=== PATIENT | female | born 1985 | race Caucasian/White ===

== ENCOUNTER → 2019-10-29 18:31 | Outpatient (BNVA) | payer SELFPAY | PROVIDERS: Family Provider Family Medicine; PCP Family Medicine; Visit Provider Nurse Practitioner Family | DX: N39.0 Urinary tract infection, site not specified (principal); B37.3 Candidiasis of vulva and vagina | CPT/HCPCS: 81000 ==

== ENCOUNTER 2020-05-07 09:27 | Outpatient (CLI) | payer SELFPAY ==
--- NOTE | 2020-05-07 09:40 | US_ITS ---
WS: [id number] ULTRASOUND ABDOMEN LIMITED CLINICAL INFORMATION: EPIGASTRIC PAIN/RUQ ABD PAIN COMPARISON: None. FINDINGS: Liver Size: Enlarged Craniocaudal length: 17.2 cm. Echogenicity: Normal. Surface nodularity: None. Mass (size and location): None. Bile ducts Intrahepatic ducts: Normal. Common bile duct diameter: 0.3 cm. Gallbladder Cholelithiasis Gallstones: Present Gallbladder sludge: None. Gallbladder wall thickening: None. Pericholecystic fluid: None. Sonographic Coleman sign: Absent. Pancreas Normal as visualized. Right kidney: Normal. Hydronephrosis: None. Size: 10.5 cm x 6.2 cm x 4.7 cm. Abdominal aorta and IVC Visualized portions are normal. Ascites: None. US/US abdomen limited 24232 IMPRESSION: 1. Mild hepatomegaly measuring 17.1 CM. 2. Cholelithiasis. Normal common bile duct. 3. No hydronephrosis in right kidney.
== END 2020-05-07 09:28 | disposition home or self-care (01) ==
LOC: RAD 09:29
PROVIDERS: Visit Provider Nurse Practitioner Family
DX: R10.11 Right upper quadrant pain (principal); R10.13 Epigastric pain; R16.0 Hepatomegaly, not elsewhere classified; K80.20 Calculus of gallbladder without cholecystitis without obstruction
CPT/HCPCS: 76705

== ENCOUNTER → 2022-08-04 14:00 | Outpatient (BNVA) | payer OTHER, SELFPAY | PROVIDERS: Visit Provider Obstetrics & Gynecology | DX: N92.6 Irregular menstruation, unspecified (principal); Z86.2 Personal history of diseases of the blood and blood-forming organs and certain disorders involving the immune mechanism | CPT/HCPCS: 81241; 87624; 88305 ==

== ENCOUNTER → 2022-08-15 14:13 | Outpatient (BNVA) | payer OTHER, SELFPAY | PROVIDERS: Visit Provider Obstetrics & Gynecology | DX: N85.9 Noninflammatory disorder of uterus, unspecified (principal); N93.8 Other specified abnormal uterine and vaginal bleeding | CPT/HCPCS: 76830 ==

== ENCOUNTER 2022-08-29 08:46 | Inpatient (IN) | payer OTHER, SELFPAY ==
[2022-08-28 08:00] VITALS: BMI 31.8
--- NOTE | 2022-08-28 08:23 | P.ANESASSM_ITS ---
Pre-Anesthetic Assessment Height/Weight: Height 1.6 m Weight 81.647 kg Preop Diagnosis: abnormal uterine bleeding Operation Date: 08/29/22 07:00 Proposed Procedures p Total abdominal hysterectomy, bilateral salpingectomy, possible oophorectomy 10721,R93.89(Not Applicable) - Bebe Geiger MD s Salpingectomy(Not Applicable) - Bebe Geiger MD s Salpingo Oophorectomy (Open)(Not Applicable) - Bebe Geiger MD Familial anesthetic complications: NOne Social Tobacco and No alcohol Exam alert, oriented x 3, clear to auscultation bilaterally and regular rate & rhythm Airway Mallampati: Class II Dentition: full Comments: Comments: TMJ - patient states it may pop during DL for intubation, but it goes back on it's own with only minor residual soreness. Pulmonary None reported CV/HEM None reported Anesthetic Plan ASA status: 2 Anesthesia: General Risk of > 500 ml blood loss (7ml/kg in children): No Medications/Allergies Home Medications Medication Instructions Recorded Confirmed Last Taken Type medroxyprogesterone 5 mg tablet 5 mg PO DAILY #90 tabs 08/18/22 08/28/22 08/27/22 Rx (Provera) Allergies Allergy/AdvReac Type Severity Reaction Status Date / Time ciprofloxacin [From Cipro] Allergy NAUSEA Verified 08/28/22 07:58 [facility] Anesthesia Medical History No pertinent past medical history neghx: htn,dm,thyroid,dvt/pe PCP: Dr. Trammell TMJ arthralgia Surgical History H/O section 2003 2007 H/O removal of cyst (~2004) to remove cyst from left ovary at [facility] by Dr. Lamar History of cholecystectomy (~12/2020) Family History Mother Breast cancer dx after age 55 Hypertension Stroke Grandmother Colon cancer maternal great Diabetes maternal great Hypertension maternal Grandfather Diabetes paternal Hypertension maternal Brother Hypertension Denies family history of Ovarian cancer Heart disease Hypercholesteremia Uterine cancer Thyroid disease Female Reproductive History Date of last menstrual period: 08/21/22 Data Anesthesia Cardiac Studies: No Data to Display
[2022-08-28 08:43] LABS: Basophils # 0.1 10^3/uL (0.0-0.1); Basophils % 1.4 %; Eosinophils # 0.3 10^3/uL (0.0-0.8); Eosinophils % 4.8 %; Hematocrit 39.9 % (37.0-47.0); Hemoglobin 13.4 g/dL (11.5-15.3); Lymphocytes # 1.5 10^3/uL (0.8-4.8); Lymphocytes % 24.5 %; Mean Corpuscular HGB Conc 33.6 g/dL (30.0-36.0); Mean Corpuscular Hemoglobin 28.3 pg (28.0-34.0); Mean Corpuscular Volume 84.4 fl (81-99); Mean Platelet Volume 10.3 fL (7.4-10.4); Monocytes # 0.4 10^3/uL (0.2-0.9); Monocytes % 6.8 %; Neutrophils # 3.91 10^3/uL (1.8-7.7); Neutrophils % 62.2 %; Nucleated Red Blood Cells % 0 %; Platelet Count 311 10^3/cmm (130-400); Red Blood Count 4.73 10^6/uL (4.1-5.3); Red Cell Distribution Width 12.2 % (12.1-15.1); White Blood Count 6.3 10^3/uL (4.0-10.0)
[2022-08-28 09:03] LABS: Anion Gap 11.8 (5-19); Blood Urea Nitrogen 9 mg/dL (6-20); Calcium 9.4 mg/dL (8.5-10.5); Carbon Dioxide 24 mmol/L (22-29); Chloride 101 mmol/L (98-107); Creatinine Clr Calc Pharmacy 110.2652; Glomerular Filtration Rate 93.6 mL/min (90-130); Glucose 106 mg/dL (65-115); Osmolality Calculated 275 mOsm/kg (285-295); Potassium 3.8 mmol/L (3.5-5.1); Sodium 133 mmol/L (136-145)
[2022-08-29] VITALS (20 sets, daily range): BP systolic 121–166; BP diastolic 81–119; PULSE 71–103; RESP 13–24; TEMP 36.3–37.2; O2SAT 90–100
[2022-08-29] MEDS: gabapentin 300 mg Capsule PO (06:23)
[2022-08-29] MEDS: phenazopyridine 100 mg Tablet 200 MG PO ×3 (06:23→21:24)
[2022-08-29] MEDS: sodium chloride 0.9% 1,000 ML 30 ML IV (06:24)
[2022-08-29] MEDS: CELEcoxib 200 mg Capsule 400 MG PO (06:24)
[2022-08-29] MEDS: acetaminophen 1,000 MG/100 ML PIGGYBACK 400 MG IV (06:27)
[2022-08-29] MEDS: scopolamine 1.5 Patch 1 PATCH TRANSDERMA (06:29)
[2022-08-29 06:48] LABS: OR HCG Qualitative Urine Negative (Negative)
--- NOTE | 2022-08-29 06:50 | P.ANESUD_ITS ---
Pre-Anesthetic Update Pre-Anesthetic Assessment: Date of Surgery/Procedure: 08/29/22 Preop Queenie gnosis: abnormal uterine bleeding Proposed Procedure: Operation Date: 08/29/22 07:00 Proposed Procedures p Total abdominal hysterectomy, bilateral salpingectomy, possible oophorectomy 96139,R93.89(Not Applicable) - Bebe Geiger MD s Salpingectomy(Not Applicable) - Bebe Geiger MD s Salpingo Oophorectomy (Open)(Not Applicable) - Bebe Geiger MD Any changes to Pre-Anesthetic Assessment?: No Last Intake: Intake Last Liquid Date 08/28/22 Last Liquid Time 21:30 Last Solid Date 08/28/22 Last Solid Time 18:00 Labs Last 48hrs: Short CBC 08/28/22 Range/Units 08:20 WBC 6.3 (4.0-10.0) 10^3/ uL Hgb 13.4 (11.5-15.3) g/dL Hct 39.9 (37.0-47.0) % MCV 84.4 (81-99) fl Plt Count 311 (130-400) 10^3/c mm Neut % (Auto) 62.2 % Neut # (Auto) 3.91 (1.8-7.7) 10^3/u L BMP 08/28/22 08:20 Sodium 133 L Potassium 3.8 Chloride 101 Carbon Dioxide 24 BUN 9 Creatinine 0.7 Glucose 106 Calcium 9.4 Blood Bank 08/28/22 08:20 Blood Type O Positive Rho(D) Type Positive Antibody Screen Negative Vitals: Temperature 98.1 F 08/29/22 06:06 Temperature Source Temporal Artery S can 08/29/22 06:06 Pulse Rate 103 H 08/29/22 06:06 Respiratory Rate 16 08/29/22 06:06 Blood Pressure 148/112 08/29/22 06:06 Blood Pressure Ethel n 124 08/29/22 06:06 Pulse Oximetry 98 08/29/22 06:06 Oxygen Delivery Me thod 08/29/22 06:06 Exam: Pre-Anes Outpt Exam: alert, oriented x 3, clear to auscultation bilaterally and regular rate & rhythm Cardiac Studies: No Data to Display
--- NOTE | 2022-08-29 07:03 | W.PM.OPSUD ---
Surgery/Procedure H&P Update DATE OF PROCEDURE: August 29, 2022 DATE H&P PERFORMED: 08/25/22 H&P UPDATE INFORMATION: I have reviewed H&P completed within last 30 days, I have examined patient prior to procedure and No changes to prior documentation PREOP DIAGNOSIS: abnormal uterine bleeding PLANNED PROCEDURE: Operation Date: 08/29/22 07:00 Proposed Procedures p Total abdominal hysterectomy, bilateral salpingectomy, possible oophorectomy 61425,R93.89(Not Applicable) - Bebe Geiger MD s Salpingectomy(Not Applicable) - eBbe Geiger MD s Salpingo Oophorectomy (Open)(Not Applicable) - Bebe Geiger MD Related Problem List Diagnoses (1) Abnormal uterine bleeding (AUB): (2) Previous section:
[2022-08-29] MEDS: ceFAZolin 2,000 MG in sodium chloride 0.9% (plus) 50 ML 100 MG IV ×2 (07:08→15:38)
--- NOTE | 2022-08-29 09:44 | SUR.OPER ---
0909 SPOUSE UPDATED IN WAITING AREA 0939 SPOUSE UPDATED VIA OPS REJI ZELAYA
--- NOTE | 2022-08-29 10:09 | P.OP_ITS ---
Operative Report Date of procedure: August 29, 2022 Pre-op diagnosis: Preop Diagnosis abnormal uterine bleeding Post-op diagnosis: same Post-op findings: enlarged uterus, 14 week sized, normal appearing tubes and ovaries. Procedure done: ENMA, bilateral salpingectomy Specimens removed/disposition: uterus and bilateral fallopian tubes to pathology Surgeon: Bebe Geiger Anesthesia: General Estimated blood loss (mL): 550 IV fluids (mL): 2,000 Urine output (mL): 100 Complications: none Findings: 14 week sized uterus, normal appearing tubes and ovaries Condition: stable Disposition: PACU Procedure: The patient was taken to the operating room where general anesthesia was administered and found to be adequate. She was prepped and draped in the normal sterile fashion in the dorsal supine position. A grimm catheter was placed. A Pfannenstiel skin incision was made over the previous scar and the scar removed. The incision was carried down to the underlying layer of fascia. The fascia was nicked in the midline and extended laterally with the Espinoza scissors. The fascia was then tented up and the rectus muscles dissected off sharply. The rectus muscles were in the midline and the abdomen entered bluntly with the digit. This peritoneal incision was extended superiorly and inferiorly with good visualization of the bladder. The O'Rg-O'Archuleta retractor was placed and the bowel packed away. The uterus was grasped bilaterally with [facility] her clamps and the uterus elevated from the pelvis. The round ligament was suture-ligated and opened. This was performed bilaterally. A window was made medial to the infundibulopelvic ligament and inferior to the fallopian tube and ovary. The infundibulopelvic ligament was clamped cut and suture-ligated bilaterally. The Syl clamp was placed in the mesosalpinx. The fallopian tubes was removed with the metzenbaum scissors. The ovarian pedicle was suture ligated. This was performed bilaterally with excellent hemostasis. The bladder flap was created sharply with the metzenbaum scissors and the bladder reflected caudally. The uterine arteries and cardinal ligaments were then clamped cut and suture-ligated down to the angle of the vagina. The vaginal cuff was clamped and cut and the specimen was removed. The vaginal cuff was closed with 0 Vicryl incorporating the uterosacral ligaments into the lateral aspects of the vaginal cuff. There was excellent hemostasis. The pelvis was irrigated. The O'Rg- O'Archuleta retractor as well as the packing was removed. The peritoneum was closed with 3-0 Monocryl in a running fashion. The fascia was closed with 0 Vicryl in a running fashion with 2 separate sutures overlapping in the midline. The skin was closed with absorbable rosana. The patient tolerated the procedure well. Sponge lap and needle counts were correct x2. She was taken to the recovery room in stable condition.
--- NOTE | 2022-08-29 10:32 | PC.NURSE ---
Complains of cramping
[2022-08-29] MEDS: fentaNYL 50 mcg/mL INJ 2mL IVP (10:35)
[2022-08-29] MEDS: dextrose 5%-lactated ringers 1,000 ML 125 ML IV ×2 (11:27→20:01)
[2022-08-29] MEDS: HYDROmorphone 1 mg/mL INJ 1 mL 1.5 MG IVP (12:12)
--- NOTE | 2022-08-29 12:29 | ANE.PACU2 ---
Inpatient post-anesthesia follow up: Airway intact: Yes Vital signs: Temperature 97.9 F Pulse Rate 75 Respiratory Rate 14 Blood Pressure 130/89 Pulse Oximetry 97 Oxygen Delivery Me thod Room Air Oxygen Flow Rate 8 Fraction of Inspir ed Oxygen Hydration adequate: Yes Nausea and vomiting: No Pain level: 1 Mental status: Baseline
[2022-08-29] MEDS: ketorolac 30 mg/mL INJ IVP ×2 (15:39→21:24)
[2022-08-29] MEDS: docusate sodium 100 mg Capsule PO (17:50)
[2022-08-29] MEDS: sodium chloride 0.9% 500 ML IV (17:51)
[2022-08-29] MEDS: FUROsemide 10 mg/mL SDV 2mL 20 MG IVP (18:31)
[2022-08-29] MEDS: ondansetron 2 mg/ML SDV 2 mL 4 MG IVP (19:16)
[2022-08-29] MEDS: diphenhydrAMINE 50 mg/mL SDV 1mL 12.5 MG IVP (21:24)
[2022-08-30] MEDS: ceFAZolin 2,000 MG in sodium chloride 0.9% (plus) 50 ML 100 MG IV
[2022-08-30] MEDS: HYDROcodone-acetaminophen 5-325 mg Tablet PO
[2022-08-30] MEDS: ketorolac 30 mg/mL INJ IVP (03:07)
[2022-08-30 03:12] VITALS: BP 124/79; PULSE 80; RESP 15; TEMP 36.8
[2022-08-30] MEDS: dextrose 5%-lactated ringers 1,000 ML 125 ML IV (04:37)
[2022-08-30 05:05] LABS: Hematocrit 23.7 % (37.0-47.0); Hemoglobin 7.6 g/dL (11.5-15.3); Mean Corpuscular HGB Conc 32.1 g/dL (30.0-36.0); Mean Corpuscular Hemoglobin 28.4 pg (28.0-34.0); Mean Corpuscular Volume 88.4 fl (81-99); Mean Platelet Volume 10.3 fL (7.4-10.4); Platelet Count 235 10^3/cmm (130-400); Red Blood Count 2.68 10^6/uL (4.1-5.3); Red Cell Distribution Width 12.5 % (12.1-15.1); White Blood Count 6.9 10^3/uL (4.0-10.0)
[2022-08-30] MEDS: docusate sodium 100 mg Capsule PO ×2 (09:40→17:46)
[2022-08-30] MEDS: ibuprofen 800 mg tablet PO ×2 (09:40→17:46)
[2022-08-30] MEDS: simethicone 80 mg Chew PO ×3 (09:40→21:05)
[2022-08-30] MEDS: phenazopyridine 100 mg Tablet 200 MG PO ×3 (09:41→21:03)
[2022-08-30 09:43] VITALS: BP 126/79; PULSE 90; RESP 17; TEMP 36.8
--- NOTE | 2022-08-30 11:06 | PM.PN ---
Subjective Subjective: The patient is doing well this morning. The nausea from last night has resolved Vitals/I&O/Wt Last Vital Signs Temp 98.3 F 08/30/22 09:43 Pulse 90 08/30/22 09:43 Resp 17 08/30/22 09:43 BP 126/79 08/30/22 09:43 Pulse Ox 99 08/29/22 14:20 O2 Del Method 08/29/22 17:55 O2 Flow Rate 8 08/29/22 10:10 08/29/22 08/30/22 08/30/22 22:59 06:59 14:59 Intake Total 2550 / 4800 1000 / 5800 Output Total 820 / 1780 1750 / 3530 100 / 100 Balance 1730 / 3020 -750 / 2270 -100 / -100 Physical Exam Narrative: The patient is tolerating a regular diet. She is ambulating. Her pain is well controlled Const: COMMON NORMALS: no acute distress, patient oriented x3, no limitations, healthy appearing, alert and well nourished GENERAL APPEARANCE: cooperative, comfortable, well kempt and well developed ORIENTATION/CONSCIOUSNESS: Yes awake, Yes oriented to person, Yes oriented to place and Yes oriented to time Resp: COMMON NORMALS: normal respiratory effort EFFORT & INSPECTION: Yes able to speak in complete sentences GI: COMMON NORMALS: Soft to palpation and non-tender PALPATION: Yes Soft to palpation Extremity: COMMON NORMALS: no calf tenderness Neuro: COMMON NORMALS: patient oriented x3 SENSORIUM/ORIENTATION: Yes alert, Yes oriented to person, Yes oriented to place and Yes oriented to time Psych: APPEARANCE: Yes well kempt Skin: WOUNDS: Yes surgical site (clean/dry/covered) Urinary Catheter Management: Kaplan: Cath Placed During This Visit: yes, but has since been removed by the nurse Reason for Continuing Indwelling Catheter: Decision to DC Catheter Urinary Catheter Date of Insertion: 08/29/22 Urinary Catheter Time of Insertion: 07:40 Date Urinary Catheter Removed: 08/30/22 Time Urinary Catheter Discontinued: 05:00 Data 08/30/22 04:54 08/28/22 08:20 Micro: Microbiology 08/29/22 07:40 Urine Culture - Preliminary Urine Catheterized Attestations Medical Necessity Statement*: The patient had an abdominal hysterectomy. She will be here two midnights Coding Level of Care Code Acute Code for Chg Fwd
--- NOTE | 2022-08-30 14:16 | PC.NURSE ---
pt up to shower without difficulty. abdominal dressing removed in shower. bed linens changed.
[2022-08-30 16:02] VITALS: BP 125/80; PULSE 80; RESP 15; TEMP 36.9
[2022-08-30] MEDS: ondansetron 2 mg/ML SDV 2 mL 4 MG IVP (18:56)
[2022-08-30 22:43] VITALS: BP 111/59; PULSE 94; RESP 15; TEMP 36.7; O2SAT 100
[2022-08-31] MEDS: ibuprofen 800 mg tablet PO (02:29)
--- NOTE | 2022-08-31 07:59 | P.DS_ITS ---
Discharge Providers Date of Admission: 08/29/22 08:46 Date of Discharge: August 31, 2022 Attending Provider at Admission: Bebe Geiger MD Attending Provider at Discharge: Bebe Geiger MD Primary Care Provider: Christos Trammell MD Diagnoses at Discharge Discharge Diagnosis (1) Abnormal uterine bleeding (AUB): Status: Acute (2) Previous section: Status: Acute Reason for Visit Reason for Visit: 75809, R93.89 Hospital Course Hospital Course The patient was admitted for surgery. she did well postoperatively and was ready for discharge on day #2 Physical Exam Narrative: The patient is doing well today. No concerns. Const: COMMON NORMALS: no acute distress, patient oriented x3, no limitations, healthy appearing, alert and well nourished GENERAL APPEARANCE: cooperative, comfortable, well kempt and well developed ORIENTATION/CONSCIOUSNESS: Yes awake, Yes oriented to person, Yes oriented to place and Yes oriented to time Resp: COMMON NORMALS: normal respiratory effort EFFORT & INSPECTION: Yes able to speak in complete sentences GI: COMMON NORMALS: Soft to palpation and non-tender PALPATION: Yes Soft to palpation Extremity: COMMON NORMALS: no calf tenderness Neuro: COMMON NORMALS: patient oriented x3 SENSORIUM/ORIENTATION: Yes alert, Yes oriented to person, Yes oriented to place and Yes oriented to time Psych: COMMON NORMALS: mental status grossly normal, Normal thought process present, cooperative, normal affect and speech normal APPEARANCE: Yes well kempt SPEECH: Yes normal speech THOUGHT PROCESS: Normal thought process present Skin: WOUNDS: Yes surgical site (clean/dry/intact) Urinary Catheter Management: Kaplan: Cath Placed During This Visit: yes, but has since been removed by the nurse Reason for Continuing Indwelling Catheter: Decision to DC Catheter Urinary Catheter Date of Insertion: 08/29/22 Urinary Catheter Time of Insertion: 07:40 Date Urinary Catheter Removed: 08/30/22 Time Urinary Catheter Discontinued: 05:00 Discharge Data Studies Completed and Pending Pending at discharge Category Date Time Status Urine Culture Routine Lab 08/29/22 07:40 Results Pathology: Surgical [PTH] Routine Pth 08/29/22 09:48 Received Laboratory Results WBC 6.9 10^3/uL (4.0-10.0) 08/30/22 04:54 RBC 2.68 10^6/uL (4.1-5.3) L 08/30/22 04:54 Hgb 7.6 g/dL (11.5-15.3) L 08/30/22 04:54 Hct 23.7 % (37.0-47.0) L 08/30/22 04:54 MCV 88.4 fl (81-99) 08/30/22 04:54 MCH 28.4 pg (28.0-34.0) 08/30/22 04:54 MCHC 32.1 g/dL (30.0-36.0) 08/30/22 04:54 RDW 12.5 % (12.1-15.1) 08/30/22 04:54 Plt Count 235 10^3/cmm (130-400) 08/30/22 04:54 MPV 10.3 fL (7.4-10.4) 08/30/22 04:54 Neut % (Auto) 62.2 % 08/28/22 08:20 Lymph % (Auto) 24.5 % 08/28/22 08:20 [place] % (Auto) 6.8 % 08/28/22 08:20 Eos % (Auto) 4.8 % 08/28/22 08:20 Baso % (Auto) 1.4 % 08/28/22 08:20 Neut # (Auto) 3.91 10^3/uL (1.8-7.7) 08/28/22 08:20 Lymph # (Auto) 1.5 10^3/uL (0.8-4.8) 08/28/22 08:20 [place] # (Auto) 0.4 10^3/uL (0.2-0.9) 08/28/22 08:20 Eos # (Auto) 0.3 10^3/uL (0.0-0.8) 08/28/22 08:20 Baso # (Auto) 0.1 10^3/uL (0.0-0.1) 08/28/22 08:20 Nucleated RBC % (auto) 0 % 08/28/22 08:20 Nucleated RBCs # 0.0 /100WBC 08/28/22 08:20 Sodium 133 mmol/L (136-145) L 08/28/22 08:20 Potassium 3.8 mmol/L (3.5-5.1) 08/28/22 08:20 Chloride 101 mmol/L (98-107) 08/28/22 08:20 Carbon Dioxide 24 mmol/L (22-29) 08/28/22 08:20 Anion Gap 11.8 (5-19) 08/28/22 08:20 BUN 9 mg/dL (6-20) 08/28/22 08:20 Creatinine 0.7 mg/dL (0.5-0.9) 08/28/22 08:20 GFR Calculation 93.6 mL/min (90-130) 08/28/22 08:20 Glucose 106 mg/dL (65-115) 08/28/22 08:20 Calculated Osmolality 275 mOsm/kg (285-295) L 08/28/22 08:20 Calcium 9.4 mg/dL (8.5-10.5) 08/28/22 08:20 Urine HCG, Qual Negative (Negative) 08/29/22 05:51 Blood Type O Positive 08/28/22 08:20 Rho(D) Type Positive 08/28/22 08:20 Antibody Screen Negative 08/28/22 08:20 Vitals Last Vital Signs Temp 98.1 F 08/30/22 22:43 Pulse 94 08/30/22 22:43 Resp 15 08/30/22 22:43 BP 111/59 08/30/22 22:43 Pulse Ox 100 08/30/22 22:43 O2 Del Method 08/30/22 22:43 O2 Flow Rate 8 08/29/22 10:10 Discharge Plan Discharge Patient Disposition: Home Condition: Stable Prescriptions: New docusate sodium 100 mg Capsule 100 mg PO BID Qty: 60 0RF ibuprofen 800 mg Tablet 800 mg PO Q8H Qty: 30 0RF hydrocodone-acetaminophen 5-325 mg Tablet 1 tab PO Q4H PRN (Reason: Moderate To Severe Pain) Qty: 30 0RF Discontinued medroxyprogesterone [Provera] 5 mg tablet 5 mg PO DAILY Qty: 90 4RF Discharge Orders: Discharge Order (Routine); Ordered 08/31/22 Ordered By: Bebe Geiger Patient Instructions: Opioid Safety Discharge Attestations Time Spent in Discharge Care*: less than 30 min Quality Metrics Clinical Quality Measures [ No reported AMI, CVA or VTE this stay] Coding Level of Care Code Acute Chg FW DC note Diagnoses Abnormal uterine bleeding (AUB) N93.9 Previous section Z98.891
[2022-08-31 08:36] VITALS: BP 108/68; PULSE 89; RESP 18; TEMP 36.7; O2SAT 98
== END 2022-08-31 08:28 | disposition home or self-care (01) | DRG 743 ==
LOC: OBGYN 08:56
PROVIDERS: Anesthesiology; Admitting Provider Obstetrics & Gynecology; PCP Family Medicine; Visit Provider Obstetrics & Gynecology
PROC: 0UT90ZZ Resection of Uterus, Open Approach (ICD-10-PCS; CPT 58150; principal; 2022-08-29 07:00)
PROC: 0UT90ZZ Resection of Uterus, Open Approach (ICD-10-PCS; CPT 58700; 2022-08-29 07:00)
DX: N93.9 Abnormal uterine and vaginal bleeding, unspecified (principal)
CPT/HCPCS: 36415; 51702; 80048; 81025; 84703; 85025; 85027; 86850; 86900; 87086; 88307; 96374; 96376; J0131; J0690; J1100; J1170; J1200; J1885; J1940; J2250; J2405; J2550; J2704; J2710; J3010; J3490; J7030; J7040; J7121

== ENCOUNTER 2023-02-21 07:26 | Outpatient (CLI) | payer OTHER, SELFPAY ==
--- NOTE | 2023-02-21 07:53 | CTR_ITS ---
PROCEDURE INFORMATION: Exam: CT Abdomen And Pelvis With Contrast Exam date and time: 02/21/2023 9:32 AM Age: 37 years old Clinical indication: Localized; Right lower quadrant (rlq); Prior surgery; Surgery date: 6+ months; Surgery type: Hyst, ovarian cyst, 2x hernia; Patient HX: RT lower abdominal pain, hematoma from hyst surgery in aug TECHNIQUE: Imaging protocol: Computed tomography of the abdomen and pelvis with contrast. Radiation optimization: All CT scans at this facility use at least one of these dose optimization techniques: automated exposure control; mA and/or kV adjustment per patient size (includes targeted exams where dose is matched to clinical indication); or iterative reconstruction. Contrast material: OMNI 350; Contrast volume: 95 ml; Contrast route: INTRAVENOUS (IV); REPORTING DATA: Count of CT and Cardiac NM exams in prior 12 months: This patient has received 0 known CTs and 0 known cardiac nuclear medicine studies in the 12 months prior to the current study. COMPARISON: 1. US transvaginal [id number] 08/15/2022 2:17 PM 2. US abdomen limited [id number] 05/07/2020 9:54 AM RADIATION DOSE METRICS: Total DLP (mGy-cm): 481.29 FINDINGS: Liver: Enlarged, measuring 19 cm in craniocaudal dimension. No focal lesions. Gallbladder and bile ducts: Prior cholecystectomy without biliary ductal dilatation. Pancreas: Normal without ductal dilatation. Spleen: Enlarged spleen measures 14 cm in greatest dimension. Adrenal glands: Normal. No mass. Kidneys and ureters: Normal. No hydronephrosis. Stomach and bowel: No dilatation. No mucosal thickening. Appendix: Normal. Intraperitoneal space: No free air, free fluid, or well-organized fluid collection. Vasculature: Scant aortoiliac atherosclerotic calcification without aneurysmal dilatation. Lymph nodes: No enlarged lymph nodes. Urinary bladder: Unremarkable as visualized. Reproductive: The uterus is surgically absent. Normal CT appearance of the ovaries with left dominant follicle. Bones/joints: No acute fracture. There is a non expansile mixed lucent and sclerotic lesion within the right ilium measuring 5.8 x 2.0 x 6.0 cm. Narrow transition zone. No endosteal scalloping, cortical disruption, periosteal reaction, or associated soft tissue mass. Soft tissues: Small fat containing umbilical hernia. Lower anterior abdominal wall postsurgical scarring. CT/CT abdomen pelvis w con* [id number] IMPRESSION: 1. No acute findings. 2. Hepatosplenomegaly. 3. Nonaggressive 6 cm mixed lucent and sclerotic right ilial lesion. Recommend nonemergent MRI without and with contrast.
[2023-02-21] MEDS: iohexol 350 mg/mL 500 mL Btl (per mL) PO (09:36)
[2023-02-21] MEDS: iohexol 350 mg/mL 500 mL Btl (per mL) IV (09:37)
== END 2023-02-21 07:27 | disposition home or self-care (01) ==
PROVIDERS: PCP Family Medicine; Visit Provider Family Medicine
DX: R10.9 Unspecified abdominal pain (principal)
CPT/HCPCS: 74177; Q9967

== ENCOUNTER 2023-03-27 10:40 | Outpatient (CLI) | payer OTHER, SELFPAY ==
--- NOTE | 2023-03-27 10:45 | MR_ITS ---
WS: [id number] MRI PELVIS WITH AND WITHOUT CONTRAST. COMPARISON: CT 02/21/2023 Multiplanar, multisequence imaging is performed with and without contrast. MultiHance 19 mL IV. Mixed signal changes in the RIGHT ilium correspond to the findings on a recent CT. On the T2 and T1 s equences there is very low signal with intermediate signal throughout. There is no fluid along the SI joint. The cortex appears intact. On the postcontrast imaging there is no significant enhancement wi thin this mixed sclerotic and lytic lesion. No associated pathological fracture or enhancement within the soft tissues or the muscles. Mixed signal mass measures 4.7 x 2.2 cm. No additional similar mass es within the bones of the pelvis. Hip joints are normal and the proximal femurs are normal. Urinary bladder is well distended. Status post prior hysterectomy. LEFT ovary is identified and conta ins small follicles. The RIGHT ovary is smaller caliber. No pelvic masses. IMPRESSION: 1. Nonenhancing, variable signal mass within the RIGHT ilium measures 4.7 x 2.2 cm. This corresponds to the mixed sclerotic and lytic lesion described by CT. Very nonspecific in appearance but the lack of IV contrast, no soft tissue component and no pathological fracture suggest nonaggressive. Differen tial includes enchondroma and low-grade chondrosarcoma. This lesion should be followed yearly by MRI with for any change. If this bone lesion becomes painful more urgent evaluation should be obtained. A lso if this bone lesion increases in size further evaluation for low-grade chondrosarcoma should be o btained. Less likely bone infarct. Bone scan imaging may be of benefit also to provide additional inf ormation. 2. No additional lesions identified and no adenopathy.
[2023-03-27] MEDS: gadobenate dimeglumine 20 mL vial IV (12:00)
== END 2023-03-27 10:41 | disposition home or self-care (01) ==
PROVIDERS: PCP Family Medicine; Visit Provider Family Medicine
DX: M89.9 Disorder of bone, unspecified (principal)
CPT/HCPCS: 72197; A9577

== ENCOUNTER 2023-10-18 07:44 | Oncology outpatient (recurring) (ONCR) | payer OTHER, SELFPAY ==
[2023-10-18 09:11] LABS: Basophils # 0.1 10^3/uL (0.0-0.1); Basophils % 1.2 %; Eosinophils # 0.3 10^3/uL (0.0-0.8); Eosinophils % 4.2 %; Hematocrit 42.2 % (36-47); Lymphocytes % 33.2 %; Mean Corpuscular HGB Conc 36.5 g/dL (30-55); Mean Corpuscular Volume 87.6 fl (85-98); Mean Platelet Volume 9.5 fL (7.4-10.4); Monocytes # 0.4 10^3/uL (0.2-0.9); Monocytes % 6.9 %; Neutrophils # 3.21 10^3/uL (1.8-7.7); Neutrophils % 54.3 %; Nucleated Red Blood Cells % 0 %; Platelet Count 277 10^3/cmm (157-399); Red Blood Count 4.82 10^6/uL (3.85-5.65); Red Cell Distribution Width 11.9 % (12.1-15.1); White Blood Count 5.91 10^3/uL (3.29-11.43)
[2023-10-18 09:49] LABS: Alanine Aminotransferase 12 U/L (0-33); Albumin Level 4.4 g/dL (3.5-5.2); Alkaline Phosphatase 60 U/L (35-105); Anion Gap 14.4 (5-19); Aspartate Amino Transferase 13 U/L (0-32); Blood Urea Nitrogen 10 mg/dL (6-20); Calcium 8.9 mg/dL (8.5-10.5); Carbon Dioxide 26 mmol/L (22-29); Chloride 103 mmol/L (98-107); Creatinine Clr Calc Pharmacy 125.5787; Free T4 Free Thyroxine 1.23 ng/dL (0.82-1.77); Globulin 2.6 g/dL (1.3-4.6); Glomerular Filtration Rate 111.3 mL/min (90-130); Glucose 98 mg/dL (65-115); Osmolality Calculated 287 mOsm/kg (285-295); Potassium 4.4 mmol/L (3.5-5.1); Sodium 139 mmol/L (136-145); Thyroid Stimulating Hormone 1.79 uIU/mL (0.27-4.20); Total Bilirubin 0.6 mg/dL (0.15-1.2)
[2023-10-18 10:18] LABS: LAB Peripheral Smear Sent for Review
[2023-10-18 10:23] LABS: Hepatitis A Antibody IgM Non-Reactive (Nonreactive); Hepatitis B Core AB, Total Non-Reactive (Nonreactive); Hepatitis B Surface AB 35.7 (11.5-1000); Hepatitis B Surface Antigen Non-Reactive (Nonreactive); Hepatitis C Virus Antibody Non-Reactive (Nonreactive)
== END 2023-11-04 23:59 | disposition home or self-care (01) ==
PROVIDERS: Visit Provider Internal Medicine
DX: R16.2 Hepatomegaly with splenomegaly, not elsewhere classified (principal)
CPT/HCPCS: 36415; 80053; 80503; 84439; 84443; 85025; 86705; 86706; 86709; 86803; 87340; 87798

== ENCOUNTER 2023-10-25 07:37 | Outpatient (CLI) | payer OTHER, SELFPAY ==
--- NOTE | 2023-10-25 08:00 | US_ITS ---
WS: [id number] ULTRASOUND ABDOMEN CLINICAL INFORMATION: hepatosplenomegaly FINDINGS: Liver Size: Mild splenomegaly Craniocaudal length: 16.2 cm. Echogenicity: Coarse Surface nodularity: None. Mass (size and location): None. Bile ducts Intrahepatic ducts: Normal. Common bile duct diameter: 0.4 cm. Gallbladder Cholecystectomy Pancreas Normal as visualized. Spleen Splenomegaly: Present Craniocaudal length: 13.0 cm. Right kidney: Normal. Hydronephrosis: None. Size: 10.9 cm x 4.3 cm x 4.8 cm Left kidney: Normal. Hydronephrosis: None. Size: 9.9 cm x 4.5 cm x 4.6 cm. Abdominal aorta and IVC Visualized portions are normal. Ascites: None. IMPRESSION: 1. Mild diffuse fatty infiltration of the liver. Mild hepatomegaly. 2. Mild splenomegaly measuring 13.0 cm. 3. Prior cholecystectomy 4. No hydronephrosis in either kidney.
== END 2023-10-25 07:38 | disposition home or self-care (01) ==
LOC: RAD 07:37
PROVIDERS: PCP Family Medicine; Visit Provider Internal Medicine
DX: K76.0 Fatty (change of) liver, not elsewhere classified (principal); R16.2 Hepatomegaly with splenomegaly, not elsewhere classified; Z90.49 Acquired absence of other specified parts of digestive tract
CPT/HCPCS: 76700

== ENCOUNTER 2023-11-22 08:26 | Outpatient (CLI) | payer OTHER, SELFPAY ==
--- NOTE | 2023-11-22 08:32 | MR_ITS ---
WS: [id number] MRI PELVIS WITH AND WITHOUT CONTRAST. COMPARISON: Prior pelvis MRI 03/27/2023, CT 02/21/2023 Multiplanar, multisequence imaging is performed with and without contrast. MultiHance 15 mL IV. Reidentified is the mixed signal bone lesion in the RIGHT ilium that was described on the prior MRI o f 03/27/[address] 02/21/2023. There has been no increase in size or aggressiveness of the iliac lesio n. There is mild bony expansion as before. Lesion extends over a length of 4.0 x 3.0 cm. There is no enhancement on the postcontrast imaging. No marrow edema. No SI joint narrowing or fluid. No adenopathy within the pelvis. Prior hysterectomy. LEFT ovary remains. The LEFT ovary contains a do minant follicle measuring 2.7 x 1.9 cm. There is no free fluid in the pelvis. The visualized GI tract is normal. Visualized bladder is negative. IMPRESSION: 1. Nonenhancing mixed lytic and sclerotic lesion in the RIGHT ilium is reidentified measuring 4.0 x 3.0 cm. No increase in size since 03/27/2023. Lesion appears nonaggressive. No pathological fracture. Recommend continued yearly MRI evaluation. Low-grade neoplasm is not completely excluded. Lesion is v linda nonaggressive. If lesion becomes painful margin evaluation should be obtained. 2. Prior hysterectomy. 3. Small dominant follicle LEFT ovary.
[2023-11-22] MEDS: gadobenate dimeglumine 20 mL vial IV (09:27)
== END 2023-11-22 08:27 | disposition home or self-care (01) ==
LOC: RAD 08:26
PROVIDERS: PCP Family Medicine; Visit Provider Internal Medicine
DX: R19.00 Intra-abdominal and pelvic swelling, mass and lump, unspecified site
CPT/HCPCS: 72197; A9577

== ENCOUNTER 2023-12-26 09:00 | Oncology outpatient (recurring) (ONCR) | payer OTHER, SELFPAY ==
[2023-12-26 09:27] LABS: Basophils # 0.1 10^3/uL (0.0-0.1); Eosinophils # 0.2 10^3/uL (0.0-0.8); Eosinophils % 3.1 %; Hematocrit 43.7 % (36-47); Lymphocytes # 2.1 10^3/uL (0.8-4.8); Lymphocytes % 30.1 %; Mean Corpuscular HGB Conc 34.3 g/dL (30-55); Mean Corpuscular Hemoglobin 31.5 pg (27-33); Mean Corpuscular Volume 91.8 fl (85-98); Mean Platelet Volume 9.7 fL (7.4-10.4); Monocytes # 0.4 10^3/uL (0.2-0.9); Monocytes % 6.2 %; Neutrophils # 4.19 10^3/uL (1.8-7.7); Neutrophils % 59.3 %; Nucleated Red Blood Cells % 0 %; Platelet Count 282 10^3/cmm (157-399); Red Blood Count 4.76 10^6/uL (3.85-5.65); White Blood Count 7.07 10^3/uL (3.29-11.43)
[2023-12-26 09:53] LABS: Alanine Aminotransferase 14 U/L (0-33); Albumin Level 4.3 g/dL (3.5-5.2); Alkaline Phosphatase 73 U/L (35-105); Aspartate Amino Transferase 16 U/L (0-32); Blood Urea Nitrogen 12 mg/dL (6-20); Calcium 9.3 mg/dL (8.5-10.5); Carbon Dioxide 25 mmol/L (22-29); Chloride 106 mmol/L (98-107); Globulin 2.5 g/dL (1.3-4.6); Glomerular Filtration Rate 111.3 mL/min (90-130); Glucose 73 mg/dL (65-115); Osmolality Calculated 286 mOsm/kg (285-295); Sodium 139 mmol/L (136-145); Total Bilirubin 0.5 mg/dL (0.15-1.2); Total Protein 6.8 g/dL (6.6-8.7)
[2023-12-26 10:55] LABS: Anion Gap 12.2 (5-19); Potassium 4.2 mmol/L (3.5-5.1)
[2023-12-28 02:30] LABS: PROTEIN, TOTAL 6.8 g/dL (6.1-8.1)
[2023-12-28 13:03] LABS: KAPPA LIGHT CHAIN, FREE, SERUM 14.2 mg/L (3.3-19.4); KAPPA/LAMBDA LIGHT CHAINS FREE 1.15 (0.26-1.65); LAMBDA LIGHT CHAIN, FREE, SERU 12.3 mg/L (5.7-26.3)
[2023-12-28 16:18] LABS: ALBUMIN 4.5 g/dL (3.8-4.8); ALPHA 1 GLOBULIN 0.3 g/dL (0.2-0.3); ALPHA 2 GLOBULIN 0.6 g/dL (0.5-0.9); BETA 1 GLOBULIN 0.4 g/dL (0.4-0.6); BETA 2 GLOBULIN 0.3 g/dL (0.2-0.5); GAMMA GLOBULIN 0.7 g/dL (0.8-1.7)
== END 2024-01-04 23:59 | disposition home or self-care (01) ==
PROVIDERS: Internal Medicine Hematology & Oncology; PCP Family Medicine; Visit Provider Internal Medicine
DX: R16.2 Hepatomegaly with splenomegaly, not elsewhere classified (principal); Z87.891 Personal history of nicotine dependence; R19.00 Intra-abdominal and pelvic swelling, mass and lump, unspecified site
CPT/HCPCS: 36415; 80053; 83883; 84155; 84165; 85025

== ENCOUNTER → 2025-01-05 10:47 | Outpatient (BNVA) | payer OTHER, SELFPAY | PROVIDERS: PCP Family Medicine; Visit Provider Nurse Practitioner Women's Health | DX: N95.1 Menopausal and female climacteric states (principal); R41.89 Other symptoms and signs involving cognitive functions and awareness | CPT/HCPCS: 82607; 82670; 82728; 82746; 83001; 84439 ==

== ENCOUNTER 2025-01-15 07:00 | Outpatient (CLI) | payer SELFPAY ==
[2025-01-15 08:06] LABS: HF Add Manual Diff No
[2025-01-15 08:12] LABS: Basophils # 0.1 10^3/uL (0.0-0.1); Basophils % 1.1 %; Eosinophils # 0.3 10^3/uL (0.0-0.8); Eosinophils % 4.3 %; Lymphocytes # 1.8 10^3/uL (0.8-4.8); Lymphocytes % 28.1 %; Mean Corpuscular HGB Conc 34.7 g/dL (30-55); Mean Corpuscular Volume 89.6 fl (85-98); Mean Platelet Volume 9.8 fL (7.4-10.4); Monocytes # 0.4 10^3/uL (0.2-0.9); Monocytes % 6.5 %; Neutrophils # 3.72 10^3/uL (1.8-7.7); Neutrophils % 59.4 %; Nucleated Red Blood Cells % 0 %; Platelet Count 269 10^3/cmm (157-399); Red Cell Distribution Width 12.2 % (12.1-15.1); White Blood Count 6.27 10^3/uL (3.29-11.43)
[2025-01-15 08:29] LABS: Estmated Average Glucose 88; Hemoglobin A1C 4.7 % (4.0-6.0)
[2025-01-15 08:32] LABS: Alanine Aminotransferase 10 U/L (0-33); Albumin Level 4.1 g/dL (3.5-5.2); Alkaline Phosphatase 68 U/L (35-105); Anion Gap 15.6 (5-19); Aspartate Amino Transferase 12 U/L (0-32); Blood Urea Nitrogen 10 mg/dL (6-20); Carbon Dioxide 26 mmol/L (22-29); Chloride 103 mmol/L (98-107); Chol HDL Ratio 3.41 mg/dL (0.0-4.40); Cholesterol 184 mg/dL (0-200); Globulin 2.5 g/dL (1.3-4.6); Glomerular Filtration Rate 110.7 mL/min (90-130); Glucose 109 mg/dL (65-115); HDL Cholesterol 54 mg/dL (60-100); LDL Cholesterol Calculated 111 mg/dL (50-129); LDL HDL Ratio 2.06 RATIO (0.00-3.22); Osmolality Calculated 290 mOsm/kg (285-295); Potassium 4.6 mmol/L (3.5-5.1); Sodium 140 mmol/L (136-145); Total Bilirubin 0.5 mg/dL (0.15-1.2); Total Protein 6.6 g/dL (6.6-8.7); Triglycerides 97 mg/dL (0-150)
[2025-01-15 08:40] LABS: Thyroid Stimulating Hormone 2.52 uIU/mL (0.27-4.20)
[2025-01-15 09:03] LABS: 25 Hydroxy Vitamin D 20 ng/mL (30-100)
== END 2025-01-15 07:01 | disposition home or self-care (01) ==
LOC: LAB 07:02
PROVIDERS: PCP Family Medicine; Visit Provider Dermatology
DX: R10.2 Pelvic and perineal pain (principal); Z01.89 Encounter for other specified special examinations; Z98.890 Other specified postprocedural states
CPT/HCPCS: 76830